=== PATIENT | female | born 1965 | race Caucasian/White ===

== ENCOUNTER 2016-08-24 20:42 | Emergency (ER) | payer BC, OTHER ==
[2016-08-24 21:54] LABS: BASO % 0.7 % (0.0-1.0); EOS # 0.1 K/mm3 (0.0-0.50); EOS % 1.4 % (0.0-3.0); LARGE UNSTAINED CELL # 0.1 K/mm3 (0.0-0.4); LARGE UNSTAINED CELL % 1.1 % (0.0-4.0); LYMPH # 0.5 K/mm3 (1.5-4.5); LYMPH % 8.4 % (24.0-44.0); MEAN CORPUSCULAR HEMOGLOBIN 28.6 pg (27.0-33.0); MEAN CORPUSCULAR VOLUME 84.1 fl (80.0-96.0); MONO # 0.2 K/mm3 (0.0-0.8); MONO % 4.7 % (0.0-5.0); NEUTROPHILS # 4.2 K/mm3 (1.8-7.7); NEUTROPHILS % 83.7 % (36.0-66.0); PLATELET COUNT, AUTOMATED 207 k/mm3 (150-450); RED CELL DISTRIBUTION WIDTH 13.4 % (11.5-14.5)
[2016-08-24 22:18] LABS: CONTROL LINE MONO INT CTR LINE PRESENT
[2016-08-24 22:20] LABS: ANION GAP 10 MEQ/L (8-16); BLOOD UREA NITROGEN 17 MG/DL (7-18); CALCIUM LEVEL 8.1 MG/DL (8.5-10.1); CARBON DIOXIDE LEVEL 25 MEQ/L (21-32); CHLORIDE LEVEL 102 MEQ/L (98-107); CREATININE FOR GFR 0.98 MG/DL (0.55-1.02); GLOMERULAR FILTRATION RATE > 60.0 (>51); GLUCOSE, FASTING 142 MG/DL (70-105); MAGNESIUM LEVEL 2.1 MG/DL (1.8-2.4); PHOSPHORUS LEVEL 3.5 MG/DL (2.5-4.9); POTASSIUM SERUM 3.5 MEQ/L (3.5-5.1); SODIUM LEVEL 137 MEQ/L (136-145)
[2016-08-24] MEDS ORDERED: OSELTAMIVIR PHOSPHATE 75 MG CAP (TAMIFLU) As Ordered ONE (23:51)
--- NOTE | 2016-08-25 | EDDOCDS ---
Physician Documentation [facility] Name: Anna Garcia Age: 51 yrs Sex: Female : 1965 Arrival Date: 08/24/2016 Time: 20:42 Bed Family 1 Private MD: Disposition: 08/24 23:25 I have independently interviewed and examined the patient, and I agree with the mm11 investigation, diagnosis and treatment plan as documented by the Resident. Disposition: 08/24/16 23:34 Discharged to Home/Self Care. Impression: Influenza due to identified novel influenza A virus. - Condition is Stable. - Discharge Instructions: Influenza, Adult, Influenza, Adult, [id number]. - Prescriptions for Tamiflu 75 mg Oral Capsule - take 1 capsule by ORAL route every 12 hours for 5 days; 10 capsule. - Medication Reconciliation, Local Pharmacy Hours form. - Follow up: Private Physician; When: Call to arrange an appointment; Reason: Recheck today's complaints, Continuance of care. - Problem is new. - Symptoms are unchanged. Historical: - Allergies: No known drug Allergies; - Home Meds: 1. Plavix 75 mg Oral tab 1 tab once daily (Last dose: 08/24/2016) 2. aspirin 325 mg Oral tab 1 tab once daily (Last dose: 08/24/2016) 3. Requip 1 mg Oral tab twice a day (Last dose: 08/24/2016) 4. Symbicort 160-4.5 mcg/actuation inhalation HFAA 2 puffs 2 times per day (Last dose: 08/24/2016) - PMHx: Bronchitis; CAD; detached retina Left eye; - PSHx: Stents, Coronary; heart cath; Knee surgery- Left; Tonsillectomy; detached retina left eye; - Social history: Smoking status: Patient uses tobacco products, heavy tobacco smoker. No barriers to communication noted, The patient speaks fluent Emirati, Speaks appropriately for age. - Family history: Not pertinent. - : The pt / caregiver states he / she is on anticoagulants: Plavix. Home medication list is obtained from the patient. - Exposure Risk Screening:: None identified. 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 4 in. (162.56 cm); Pain 0/10; 22:04 BP 107 / 62 RA Supine (auto/reg); js15 22:05 Pulse 64 MON; Pulse Ox 93% ; js15 22:19 BP 117 / 70 RA Sitting (auto/reg); js15 22:20 Pulse 64 MON; Pulse Ox 93% ; js15 22:24 BP 107 / 63 RA Standing (auto/reg); js15 22:25 Pulse 70 MON; Pulse Ox 93% ; js15 23:38 BP 121 / 70; Pulse 64; Resp 18; Temp 98.2(TE); Pulse Ox 94% on R/A; Pain 0/10; rosaline 20:55 Body Mass Index 29.70 (78.47 kg, 162.56 cm) js15 MDM: 21:18 Strep Screen, Nursing ordered. gk1 21:19 ECG WITH READING ER PHYS+CARDIAG ordered. EDMS 21:20 Orthostatic VS ordered. gk1 21:20 Monoscreen Ordered. EDMS 21:20 -Influenza A&B Rapid Antigen - Nose Ordered. EDMS 21:21 Personal Care Aide ordered. gk1 21:22 Chest, 2 View (pa\E\lat) Ordered. EDMS 21:30 LR Solution 1000 ml IV at bolus once ordered. gk1 21:30 IV Saline Lock ordered. gk1 21:39 CBC with Diff Ordered. EDMS 21:39 Basic Metabolic Profile Ordered. EDMS 21:39 Magnesium Level Ordered. EDMS 21:39 Phosphorous Level Ordered. EDMS 21:56 GATS (NEGATIVE STREP SCREEN) Ordered. EDMS 22:15 [facility] Payment Agreement was scanned into [employer] and attached to record. gb 22:16 Financial registration complete. gb 23:07 -Influenza A&B Rapid Antigen - Nose Reviewed. gk1 23:07 CBC with Diff Reviewed. gk1 23:07 Basic Metabolic Profile Reviewed. gk1 23:07 Monoscreen Reviewed. gk1 23:07 Magnesium Level Reviewed. gk1 23:07 Phosphorous Level Reviewed. gk1 23:33 Oseltamivir 75 mg PO once ordered. gk1 Administered Medications: 21:48 Drug: LR 1000 ml [lactated ringers intravenous solution] Route: IV; Rate: bolus; Site: js15 left hand; 23:57 Follow up: IV Status: Completed infusion; IV Intake: 1000ml js15 23:57 Drug: Oseltamivir 75 mg [oseltamivir 75 mg capsule (1 caps)] Route: PO; js15 Signatures: Dispatcher [employer] EDCristel Astorga, Reg Reg gb Jacobo Sandhu, DO mm11 Pia HerculesRN RN js15 Armin Myers, DO DO gk1 The chart was reviewed and I authenticate all verbal orders and agree with the evaluation and treatment provided.Attachments: :15 [facility] Payment Agreement gb MTDD
--- NOTE | 2016-08-25 | EDDOCDS ---
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 states that he thinks she passed out because he was talking to her and she wasn't answering but pt does not recall syncopal episode. Diaphoretic on EMS arrival; FSBS 1417. 20:45 Acuity: SAGRARIO Level 3 js15 20:50 Adult Sepsis Screening: The patient does not have new or worsening altered mentation. js15 Patient's respiratory rate is less than 22. Systolic blood pressure is greater than 100. Patient has a qSOFA score of 0- Negative Sepsis Screen. Suicide/Homicide risk assessment- the patient denies having any suicidal and/or homicidal ideations and does not present with any other emotional, behavioral or mental health complaints. 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 Transition of care: patient was not received from another setting of care. 20:50 Method Of Arrival: Ambulance js15 Triage Assessment: 20:55 General: Appears in no apparent distress, comfortable, Behavior is appropriate for age, js15 cooperative. Pain: Denies pain. Pt Declines HIV testing. The patient is triaged at the bedside. See Assessment in Nurses Notes section of ED record. Neurological: Level of Consciousness is awake, alert, obeys commands, Oriented to person, place, time. Cardiovascular: Capillary refill < 3 seconds Heart tones S1 S2 present Rhythm is sinus rhythm. Respiratory: Airway is patent Respiratory effort is even, unlabored, Respiratory pattern is regular, symmetrical, Breath sounds are coarse Breath sounds with wheezes expiratory bilaterally. Reports cough that is non-productive. GI: Abdomen is non- distended Bowel sounds present X 4 quads. Abd is soft and non tender X 4 quads. Derm: Skin is pink, warm & dry. 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 Plavix 75 mg Oral tab 1 tab once daily (Last dose: 08/24/2016) 2. aspirin 325 mg Oral tab 1 tab once daily (Last dose: 08/24/2016) 3. Requip 1 mg Oral tab twice a day (Last dose: 08/24/2016) 4. Symbicort 160-4.5 mcg/actuation inhalation HFAA 2 puffs 2 times per day (Last dose: 08/24/2016) - PMHx: Bronchitis; CAD; detached retina Left eye; - PSHx: Stents, Coronary; heart cath; Knee surgery- Left; Tonsillectomy; detached retina left eye; - Social history: Smoking status: Patient uses tobacco products, heavy tobacco smoker. No barriers to communication noted, The patient speaks fluent Bengali, Speaks appropriately for age. - Family history: Not pertinent. - : The pt / caregiver states he / she is on anticoagulants: Plavix. Home medication list is obtained from the patient. - Exposure Risk Screening:: None identified. Screenin:02 Screening information is obtained from the patient. Fall risk: No risks identified. js15 Assistance ADL's: requires no assistance with activities of daily living. Abuse/DV Screen: The patient / caregiver reports he/she is: not in a situation that causes fear, pain or injury. Nutritional screening: No deficits noted. Advance Directives: There is no active DNR order. home support is adequate. Assessment: 21:02 General: see triage note. js15 22:00 Reassessment: Patient appears in no apparent distress at this time. Pt resting on js15 stretcher with at bedside; respirations even and unlabored; skin pink, warm, dry. 23:00 Reassessment: Patient appears in no apparent distress at this time. Patient denies pain js15 at this time. Pt resting on stretcher, respirations even and unlabored; skin pink, warm, dry. 23:58 General: Appears in no apparent distress, comfortable, Behavior is appropriate for age, js15 cooperative. Pain: Denies pain. Neurological: Level of Consciousness is awake, alert, obeys commands, Oriented to person, place, time. Cardiovascular: Rhythm is regular. Respiratory: Airway is patent Respiratory effort is even, unlabored, Respiratory pattern is regular, symmetrical. Derm: Skin is pink, warm & dry. Vital Signs: 20:55 BP 119 / 60; Pulse 73; Resp 20; Temp 99.4(O); Pulse Ox 93% on R/A; Weight 78.47 kg; js15 Height 5 ft. 4 in. (162.56 cm); Pain 0/10; 22:04 BP 107 / 62 RA Supine (auto/reg); js15 22:05 Pulse 64 MON; Pulse Ox 93% ; js15 22:19 BP 117 / 70 RA Sitting (auto/reg); js15 22:20 Pulse 64 MON; Pulse Ox 93% ; js15 22:24 BP 107 / 63 RA Standing (auto/reg); js15 22:25 Pulse 70 MON; Pulse Ox 93% ; js15 23:38 BP 121 / 70; Pulse 64; Resp 18; Temp 98.2(TE); Pulse Ox 94% on R/A; Pain 0/10; rosaline 20:55 Body Mass Index 29.70 (78.47 kg, 162.56 cm) js15 Vitals: 20:55 Log In Time N/A - ambulance arrival. js15 21:55 Strep Screen is obtained and tested: Negative, [facility] and [facility]. ED Course: 20:44 Patient visited by Leidy Frankel, Filter Tank Operator. ml3 20:44 Princess iKng,RN is Primary Nurse. ml3 20:44 Patient moved to Waiting ml3 20:44 Patient moved to 13 ml3 20:49 [facility]. gk1 20:49 Jacobo Sandhu DO is Attending Physician. gk1 20:49 Triage Initiated js15 21:02 Maintain field IV. Dressing intact. Site clean & dry. Gauge & site: 18 G L hand. js15 21:26 EKG done. (by ED staff). Reviewed by Armin Myers DO. rosaline 21:35 Patient visited by Jacobo Sandhu DO. mm11 21:54 -Influenza A&B Rapid Antigen - Nose Sent. js15 22:00 The patient / caregiver is instructed regarding the plan of care and ED course. js15 22:15 [facility] [place] [facility] Payment Agreement was scanned into [employer] and attached to record. gb 22:42 Patient visited by Armin Myers DO. gk1 23:38 Patient visited by Tonia Teran PCA. rosaline 23:58 Discontinued IV lock intact, bleeding controlled, pressure dressing applied, No js15 redness/swelling at site. No procedures done that require assistance. 23:59 Patient moved to Family 1 bakari Administered Medications: 21:48 Drug: LR 1000 ml [lactated ringers intravenous solution] Route: IV; Rate: bolus; Site: js15 left hand; 23:57 Follow up: IV Status: Completed infusion; IV Intake: 1000ml js15 23:57 Drug: Oseltamivir 75 mg [oseltamivir 75 mg capsule (1 caps)] Route: PO; js15 Intake: 23:57 IV: 1000.00ml; Total: 1000.00ml. js15 Order Results: Lab Order: -Influenza A&B Rapid Antigen - Nose; SPEC'M 08/24/16 21:45 Test: INFLUENZA A RAPID SCR by ICA; Value: INFLUENZA A RESULTS POSITIVE; Abnormal: Abnormal; Status: F Test: INFLUENZA A RAPID SCR by ICA; Value: Comments:; Status: F Test: INFLUENZA B RAPID SCR by ICA; Value: INFLUENZA B RESULTS NEGATIVE; Status: F Test Note: ; The Influenza test is a direct rapid immunoassay for the qualitative detection of Influenza viral antigen. Cell culture (Viral Culture) testing should be considered to confirm NEGATIVE results and to assist in detecting other viruses that can provide similar clinical symptoms. Please contact the lab within 24 hours ([phone]) if confirmatory testing is desired. Lab Order: Monoscreen; SPEC'M 08/24/16 21:45 Test: MONO SCRN; Value: NEGATIVE; Range: NEGATIVE; Status: F Lab Order: CBC with Diff; SPEC'M 08/24/16 21:45 Test: WHITE BLOOD COUNT; Value: 5.0; Range: 4.0-10.0; Units: K/mm3; Status: F Test: RED BLOOD COUNT; Value: 4.63; Range: 4.00-5.40; Units: M/mm3; Status: F Test: HEMOGLOBIN; Value: 13.2; Range: 12.0-16.0; Units: g/dl; Status: F Test: HEMATOCRIT; Value: 38.9; Range: 36.0-47.0; Units: %; Status: F Test: MEAN CORPUSCULAR VOLUME; Value: 84.1; Range: 80.0-96.0; Units: fl; Status: F Test: MEAN CORPUSCULAR HEMOGLOBIN; Value: 28.6; Range: 27.0-33.0; Units: pg; Status: F Test: MEAN CORPUSCULAR HGB CONC; Value: 34.0; Range: 32.0-36.5; Units: g/dl; Status: F Test: RED CELL DISTRIBUTION WIDTH; Value: 13.4; Range: 11.5-14.5; Units: %; Status: F Test: PLATELET COUNT, AUTOMATED; Value: 207; Range: 150-450; Units: k/mm3; Status: F Test: NEUTROPHILS %; Value: 83.7; Range: 36.0-66.0; Abnormal: Above high normal; Units: %; Status: F Test: LYMPH %; Value: 8.4; Range: 24.0-44.0; Abnormal: Below low normal; Units: %; Status: F Test: MONO %; Value: 4.7; Range: 0.0-5.0; Units: %; Status: F Test: EOS %; Value: 1.4; Range: 0.0-3.0; Units: %; Status: F Test: BASO %; Value: 0.7; Range: 0.0-1.0; Units: %; Status: F Test: LARGE UNSTAINED CELL %; Value: 1.1; Range: 0.0-4.0; Units: %; Status: F Test: NEUTROPHILS #; Value: 4.2; Range: 1.8-7.7; Units: K/mm3; Status: F Test: LYMPH #; Value: 0.5; Range: 1.5-4.5; Abnormal: Below low normal; Units: K/mm3; Status: F Test: MONO #; Value: 0.2; Range: 0.0-0.8; Units: K/mm3; Status: F Test: EOS #; Value: 0.1; Range: 0.0-0.50; Units: K/mm3; Status: F Test: BASO #; Value: 0.0; Range: 0.0-0.2; Units: K/mm3; Status: F Test: LARGE UNSTAINED CELL #; Value: 0.1; Range: 0.0-0.4; Units: K/mm3; Status: F Lab Order: Basic Metabolic Profile; SPEC' 08/24/16 21:45 Test: GLUCOSE, FASTING; Value: 142; Range: 70-105; Abnormal: Above high normal; Units: MG/DL; Status: F Test: BLOOD UREA NITROGEN; Value: 17; Range: 7-18; Units: MG/DL; Status: F Test: CREATININE FOR GFR; Value: 0.98; Range: 0.55-1.02; Units: MG/DL; Status: F Test: GLOMERULAR FILTRATION RATE; Value: > 60.0; Range: >51; Status: F Test: SODIUM LEVEL; Value: 137; Range: 136-145; Units: MEQ/L; Status: F Test: POTASSIUM SERUM; Value: 3.5; Range: 3.5-5.1; Units: MEQ/L; Status: F Test: CHLORIDE LEVEL; Value: 102; Range: 98-107; Units: MEQ/L; Status: F Test: CARBON DIOXIDE LEVEL; Value: 25; Range: 21-32; Units: MEQ/L; Status: F Test: ANION GAP; Value: 10; Range: 8-16; Units: MEQ/L; Status: F Test: CALCIUM LEVEL; Value: 8.1; Range: 8.5-10.1; Abnormal: Below low normal; Units: MG/DL; Status: F Test Note: ; Units are mL/min/1.73 m2 Chronic Kidney Disease Staging per NKF: Stage I & II GFR >=60 Normal to Mildly Decreased Stage III GFR 30-59 Moderately Decreased Stage IV GFR 15-29 Severely Decreased Stage V GFR <15 Very Little GFR Left ESRD GFR <15 on DATA COLLECTION SPECIALIST Lab Order: Magnesium Level; [facility]' 08/24/16 21:45 Test: MAGNESIUM LEVEL; Value: 2.1; Range: 1.8-2.4; Units: MG/DL; Status: F Lab Order: Phosphorous Level; SPEC' 08/24/16 21:45 Test: PHOSPHORUS LEVEL; Value: 3.5; Range: 2.5-4.9; Units: MG/DL; Status: F Outcome: 23:34 Discharge ordered by Provider. gk1 23:58 Discharge Assessment: Patient awake, alert and oriented x 3. No cognitive and/or js15 functional deficits noted. Patient verbalized understanding of disposition instructions. patient administered narcotics - no. The following High Risk Discharge criteria are identified: None. Discharged to home ambulatory, with significant other. Condition: stable. Discharge instructions given to patient, Instructed on discharge instructions, follow up and referral plans. medication usage, Demonstrated understanding of instructions, medications, Pt was receptive of discharge instructions/ teaching. Prescriptions given X 1. No special radiology studies were completed. Property sent home with patient. 23:59 Patient left the ED. js15 Signatures: Sophy Cerrato, RN RN Cristel Josue, Reg Reg gb Leidy Frankel, Filter Tank Operator Unit ml3 Jacobo Sandhu, DO DO mm11 Tonia Teran, TERMITE EXTERMINATOR TERMITE EXTERMINATOR Pia Aceves RN RN js15 Armin Myers, DO DO gk1 WILL
--- NOTE | 2016-08-25 08:29 | ECGEPIP ---
Stationary ECG Study 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
--- NOTE | 2016-08-25 08:44 | REP ---
Clinical: Acute cough . Comparison: 07/19/2009 . Technique: PA and lateral. Findings: The mediastinum and cardiac silhouette are normal. The lung gaytan are clear and without acute consolidation, effusion, or pneumothorax. The skeletal structures are intact and normal. Impression: 1. No acute cardiopulmonary process. Signed by Yung Kim MD 08/25/2016 08:35 A
--- NOTE | 2016-08-27 01:00 | EDDOCDS ---
Nurse's Notes [facility] Name: Dinh Garcia Age: 51 yrs Sex: Female : 1965 Arrival Date: 08/24/2016 Time: 20:42 Bed Family 1 Private MD: Diagnosis: Influenza due to identified novel influenza A virus Presentation: 08/24 20:45 Presenting complaint: EMS states: Flu like symptoms for 3 days [employer]; Fever that has been js15 controlled with tylenol. states that he thinks she passed out because he was talking to her and she wasn't answering but pt does not recall syncopal episode. Diaphoretic on EMS arrival; FSBS 1417. 20:45 Acuity: [place] Level 3 js15 20:50 Adult Sepsis Screening: The patient does not have new or worsening altered mentation. js15 Patient's respiratory rate is less than 22. Systolic blood pressure is greater than 100. Patient has a qSOFA score of 0- Negative Sepsis Screen. Suicide/Homicide risk assessment- the patient denies having any suicidal and/or homicidal ideations and does not present with any other emotional, behavioral or mental health complaints. 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 Transition of care: patient was not received from another setting of care. 20:50 Method Of Arrival: Ambulance js15 Triage Assessment: 20:55 General: Appears in no apparent distress, comfortable, Behavior is appropriate for age, js15 cooperative. Pain: Denies pain. Pt Declines HIV testing. The patient is triaged at the bedside. See Assessment in Nurses Notes section of ED record. Neurological: Level of Consciousness is awake, alert, obeys commands, Oriented to person, place, time. Cardiovascular: Capillary refill < 3 seconds Heart tones S1 S2 present Rhythm is sinus rhythm. Respiratory: Airway is patent Respiratory effort is even, unlabored, Respiratory pattern is regular, symmetrical, Breath sounds are coarse Breath sounds with wheezes expiratory bilaterally. Reports cough that is non-productive. GI: Abdomen is non- distended Bowel sounds present X 4 quads. Abd is soft and non tender X 4 quads. Derm: Skin is pink, warm & dry. 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 Plavix 75 mg Oral tab 1 tab once daily (Last dose: 08/24/2016) 2. aspirin 325 mg Oral tab 1 tab once daily (Last dose: 08/24/2016) 3. Requip 1 mg Oral tab twice a day (Last dose: 08/24/2016) 4. Symbicort 160-4.5 mcg/actuation inhalation HFAA 2 puffs 2 times per day (Last dose: 08/24/2016) - PMHx: Bronchitis; CAD; detached retina Left eye; - PSHx: Stents, Coronary; heart cath; Knee surgery- Left; Tonsillectomy; detached retina left eye; - Social history: Smoking status: Patient uses tobacco products, heavy tobacco smoker. No barriers to communication noted, The patient speaks fluent Amharic, Speaks appropriately for age. - Family history: Not pertinent. - : The pt / caregiver states he / she is on anticoagulants: Plavix. Home medication list is obtained from the patient. - Exposure Risk Screening:: None identified. Screenin:02 Screening information is obtained from the patient. Fall risk: No risks identified. js15 Assistance ADL's: requires no assistance with activities of daily living. Abuse/DV Screen: The patient / caregiver reports he/she is: not in a situation that causes fear, pain or injury. Nutritional screening: No deficits noted. Advance Directives: There is no active DNR order. home support is adequate. Assessment: 21:02 General: see triage note. js15 22:00 Reassessment: Patient appears in no apparent distress at this time. Pt resting on js15 stretcher with at bedside; respirations even and unlabored; skin pink, warm, dry. 23:00 Reassessment: Patient appears in no apparent distress at this time. Patient denies pain js15 at this time. Pt resting on stretcher, respirations even and unlabored; skin pink, warm, dry. 23:58 General: Appears in no apparent distress, comfortable, Behavior is appropriate for age, js15 cooperative. Pain: Denies pain. Neurological: Level of Consciousness is awake, alert, obeys commands, Oriented to person, place, time. Cardiovascular: Rhythm is regular. Respiratory: Airway is patent Respiratory effort is even, unlabored, Respiratory pattern is regular, symmetrical. Derm: Skin is pink, warm & dry. Vital Signs: 20:55 BP 119 / 60; Pulse 73; Resp 20; Temp 99.4(O); Pulse Ox 93% on R/A; Weight 78.47 kg; js15 Height 5 ft. 4 in. (162.56 cm); Pain 0/10; 22:04 BP 107 / 62 RA Supine (auto/reg); js15 22:05 Pulse 64 MON; Pulse Ox 93% ; js15 22:19 BP 117 / 70 RA Sitting (auto/reg); js15 22:20 Pulse 64 MON; Pulse Ox 93% ; js15 22:24 BP 107 / 63 RA Standing (auto/reg); js15 22:25 Pulse 70 MON; Pulse Ox 93% ; js15 23:38 BP 121 / 70; Pulse 64; Resp 18; Temp 98.2(TE); Pulse Ox 94% on R/A; Pain 0/10; rosaline 20:55 Body Mass Index 29.70 (78.47 kg, 162.56 cm) js15 Vitals: 20:55 Log In Time N/A - ambulance arrival. js15 21:55 Strep Screen is obtained and tested: Negative, [facility]G [facility] and sent. ED Course: 20:44 Patient visited by Leidy Frankel, House Wrecker. ml3 20:44 Princess King,RN is Primary Nurse. ml3 20:44 Patient moved to Waiting ml3 20:44 Patient moved to 13 ml3 20:49 [facility]. gk1 20:49 Jacobo Sandhu DO is Attending Physician. gk1 20:49 Triage Initiated js15 21:02 Maintain field IV. Dressing intact. Site clean & dry. Gauge & site: 18 G L hand. js15 21:26 EKG done. (by ED staff). Reviewed by Armin Myers DO. rosaline 21:35 Patient visited by Jacobo Sandhu DO. mm11 21:54 -Influenza A&B Rapid Antigen - Nose Sent. js15 22:00 The patient / caregiver is instructed regarding the plan of care and ED course. js15 22:15 [facility] Payment Agreement was scanned into [employer] and attached to record. gb 22:42 Patient visited by Armin Myers DO. gk1 23:38 Patient visited by Tonia Teran PCA. rosaline 23:58 Discontinued IV lock intact, bleeding controlled, pressure dressing applied, No js15 redness/swelling at site. No procedures done that require assistance. 23:59 Patient moved to Family 1 jul 08 08:38 EKG-ADULT Returned. EDMS 09:13 Chest, 2 View (pa\E\lat) Returned. EDMS 09:35 T-Sheet-- Draft Copy was scanned into [employer] and attached to record. jp5 08/26 10:54 ECG/EKG was scanned into [employer] and attached to record. gb 10:56 PCR was scanned into [employer] and attached to record. gb Administered Medications: 08/24 21:48 Drug: LR 1000 ml [lactated ringers intravenous solution] Route: IV; Rate: bolus; Site: js15 left hand; 23:57 Follow up: IV Status: Completed infusion; IV Intake: 1000ml js15 23:57 Drug: Oseltamivir 75 mg [oseltamivir 75 mg capsule (1 caps)] Route: PO; js15 Intake: 23:57 IV: 1000.00ml; Total: 1000.00ml. js15 Order Results: Lab Order: -Influenza A&B Rapid Antigen - Nose; SPEC'M 08/24/16 21:45 Test: INFLUENZA A RAPID SCR by ICA; Value: INFLUENZA A RESULTS POSITIVE; Abnormal: Abnormal; Status: F Test: INFLUENZA A RAPID SCR by ICA; Value: Comments:; Status: F Test: INFLUENZA B RAPID SCR by ICA; Value: INFLUENZA B RESULTS NEGATIVE; Status: F Test Note: ; The Influenza test is a direct rapid immunoassay for the qualitative detection of Influenza viral antigen. Cell culture (Viral Culture) testing should be considered to confirm NEGATIVE results and to assist in detecting other viruses that can provide similar clinical symptoms. Please contact the lab within 24 hours ([phone]) if confirmatory testing is desired. Lab Order: Monoscreen; SPEC'M 08/24/16 21:45 Test: MONO SCRN; Value: NEGATIVE; Range: NEGATIVE; Status: F Lab Order: CBC with Diff; SPEC'M 08/24/16 21:45 Test: WHITE BLOOD COUNT; Value: 5.0; Range: 4.0-10.0; Units: K/mm3; Status: F Test: RED BLOOD COUNT; Value: 4.63; Range: 4.00-5.40; Units: M/mm3; Status: F Test: HEMOGLOBIN; Value: 13.2; Range: 12.0-16.0; Units: g/dl; Status: F Test: HEMATOCRIT; Value: 38.9; Range: 36.0-47.0; Units: %; Status: F Test: MEAN CORPUSCULAR VOLUME; Value: 84.1; Range: 80.0-96.0; Units: fl; Status: F Test: MEAN CORPUSCULAR HEMOGLOBIN; Value: 28.6; Range: 27.0-33.0; Units: pg; Status: F Test: MEAN CORPUSCULAR HGB CONC; Value: 34.0; Range: 32.0-36.5; Units: g/dl; Status: F Test: RED CELL DISTRIBUTION WIDTH; Value: 13.4; Range: 11.5-14.5; Units: %; Status: F Test: PLATELET COUNT, AUTOMATED; Value: 207; Range: 150-450; Units: k/mm3; Status: F Test: NEUTROPHILS %; Value: 83.7; Range: 36.0-66.0; Abnormal: Above high normal; Units: %; Status: F Test: LYMPH %; Value: 8.4; Range: 24.0-44.0; Abnormal: Below low normal; Units: %; Status: F Test: MONO %; Value: 4.7; Range: 0.0-5.0; Units: %; Status: F Test: EOS %; Value: 1.4; Range: 0.0-3.0; Units: %; Status: F Test: BASO %; Value: 0.7; Range: 0.0-1.0; Units: %; Status: F Test: LARGE UNSTAINED CELL %; Value: 1.1; Range: 0.0-4.0; Units: %; Status: F Test: NEUTROPHILS #; Value: 4.2; Range: 1.8-7.7; Units: K/mm3; Status: F Test: LYMPH #; Value: 0.5; Range: 1.5-4.5; Abnormal: Below low normal; Units: K/mm3; Status: F Test: MONO #; Value: 0.2; Range: 0.0-0.8; Units: K/mm3; Status: F Test: EOS #; Value: 0.1; Range: 0.0-0.50; Units: K/mm3; Status: F Test: BASO #; Value: 0.0; Range: 0.0-0.2; Units: K/mm3; Status: F Test: LARGE UNSTAINED CELL #; Value: 0.1; Range: 0.0-0.4; Units: K/mm3; Status: F Lab Order: Basic Metabolic Profile; [facility]' 08/24/16 21:45 Test: GLUCOSE, FASTING; Value: 142; Range: 70-105; Abnormal: Above high normal; Units: MG/DL; Status: F Test: BLOOD UREA NITROGEN; Value: 17; Range: 7-18; Units: MG/DL; Status: F Test: CREATININE FOR GFR; Value: 0.98; Range: 0.55-1.02; Units: MG/DL; Status: F Test: GLOMERULAR FILTRATION RATE; Value: > 60.0; Range: >51; Status: F Test: SODIUM LEVEL; Value: 137; Range: 136-145; Units: MEQ/L; Status: F Test: POTASSIUM SERUM; Value: 3.5; Range: 3.5-5.1; Units: MEQ/L; Status: F Test: CHLORIDE LEVEL; Value: 102; Range: 98-107; Units: MEQ/L; Status: F Test: CARBON DIOXIDE LEVEL; Value: 25; Range: 21-32; Units: MEQ/L; Status: F Test: ANION GAP; Value: 10; Range: 8-16; Units: MEQ/L; Status: F Test: CALCIUM LEVEL; Value: 8.1; Range: 8.5-10.1; Abnormal: Below low normal; Units: MG/DL; Status: F Test Note: ; Units are mL/min/1.73 m2 Chronic Kidney Disease Staging per NKF: Stage I & II GFR >=60 Normal to Mildly Decreased Stage III GFR 30-59 Moderately Decreased Stage IV GFR 15-29 Severely Decreased Stage V GFR <15 Very Little GFR Left ESRD GFR <15 on [facility] Lab Order: Magnesium Level; SPEC' 08/24/16 21:45 Test: MAGNESIUM LEVEL; Value: 2.1; Range: 1.8-2.4; Units: MG/DL; Status: F Lab Order: Phosphorous Level; SPEC'M 08/24/16 21:45 Test: PHOSPHORUS LEVEL; Value: 3.5; Range: 2.5-4.9; Units: MG/DL; Status: F Lab Order: GATS (NEGATIVE STREP SCREEN); SPEC'M 08/24/16 21:52 Test: GATS CULTURE (NEG STREP SCR); Value: GATS RESULT NEGATIVE FOR STREP PYOGENES (GROUP A); Status: F Test: GATS CULTURE (NEG STREP SCR); Value: <EXTERNAL COMMENT eCWMed> FULL REPORT IN LAB NOTES (eCW and Medent).; Status: F Radiology Order: EKG-ADULT Test: EKG-ADULT REASON FOR EXAMINATION: Syncope; Stationary ECG Study; [facility] - ED; ; Test Date: 2016-08-24; Pat Name: DINH GARCIA Department:; Room: -; 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 The lung gaytan are clear and; without acute consolidation, effusion, or pneumothorax. The skeletal structures; are intact and normal.; ; Impression:; 1. No acute cardiopulmonary process.; ; ; Signed by; Yugn Kim MD 08/25/2016 08:35 A; Outcome: 23:34 Discharge ordered by Provider. gk1 23:58 Discharge Assessment: Patient awake, alert and oriented x 3. No cognitive and/or js15 functional deficits noted. Patient verbalized understanding of disposition instructions. patient administered narcotics - no. The following High Risk Discharge criteria are identified: None. Discharged to home ambulatory, with significant other. Condition: stable. Discharge instructions given to patient, Instructed on discharge instructions, follow up and referral plans. medication usage, Demonstrated understanding of instructions, medications, Pt was receptive of discharge instructions/ teaching. Prescriptions given X 1. No special radiology studies were completed. Property sent home with patient. 23:59 Patient left the ED. js15 Signatures: Dispatcher [employer] EDMS Sophy Cerrato, RN RN Cristel Josue, Reg Reg gb Leidy Frankel, House Wrecker Unit ml3 Jacobo Sandhu, DO DO mm11 Tonia Teran, STATE EPIDEMIOLOGIST STATE EPIDEMIOLOGIST Pia Aceves,RN RN js15 Oli Noguera jp5 Armin Myers, DO DO gk1 Chart Complete WILL
--- NOTE | 2016-08-27 01:00 | EDDOCDS ---
Physician Documentation [facility] Name: Anna Garcia Age: 51 yrs Sex: Female : 1965 Arrival Date: 08/24/2016 Time: 20:42 Bed Family 1 Private MD: Disposition: 08/24 23:25 I have independently interviewed and examined the patient, and I agree with the mm11 investigation, diagnosis and treatment plan as documented by the Resident. Disposition: 08/24/16 23:34 Discharged to Home/Self Care. Impression: Influenza due to identified novel influenza A virus. - Condition is Stable. - Discharge Instructions: Influenza, Adult, Influenza, Adult, [id number]-[id number]. - Prescriptions for Tamiflu 75 mg Oral Capsule - take 1 capsule by ORAL route every 12 hours for 5 days; 10 capsule. - Medication Reconciliation, Local Pharmacy Hours form. - Follow up: Private Physician; When: Call to arrange an appointment; Reason: Recheck today's complaints, Continuance of care. - Problem is new. - Symptoms are unchanged. Historical: - Allergies: No known drug Allergies; - Home Meds: 1. Plavix 75 mg Oral tab 1 tab once daily (Last dose: 08/24/2016) 2. aspirin 325 mg Oral tab 1 tab once daily (Last dose: 08/24/2016) 3. Requip 1 mg Oral tab twice a day (Last dose: 08/24/2016) 4. Symbicort 160-4.5 mcg/actuation inhalation HFAA 2 puffs 2 times per day (Last dose: 08/24/2016) - PMHx: Bronchitis; CAD; detached retina Left eye; - PSHx: Stents, Coronary; heart cath; Knee surgery- Left; Tonsillectomy; detached retina left eye; - Social history: Smoking status: Patient uses tobacco products, heavy tobacco smoker. No barriers to communication noted, The patient speaks fluent Paraguayan, Speaks appropriately for age. - Family history: Not pertinent. - : The pt / caregiver states he / she is on anticoagulants: Plavix. Home medication list is obtained from the patient. - Exposure Risk Screening:: None identified. 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 4 in. (162.56 cm); Pain 0/10; 22:04 BP 107 / 62 RA Supine (auto/reg); js15 22:05 Pulse 64 MON; Pulse Ox 93% ; js15 22:19 BP 117 / 70 RA Sitting (auto/reg); js15 22:20 Pulse 64 MON; Pulse Ox 93% ; js15 22:24 BP 107 / 63 RA Standing (auto/reg); js15 22:25 Pulse 70 MON; Pulse Ox 93% ; js15 23:38 BP 121 / 70; Pulse 64; Resp 18; Temp 98.2(TE); Pulse Ox 94% on R/A; Pain 0/10; rosaline 20:55 Body Mass Index 29.70 (78.47 kg, 162.56 cm) js15 MDM: 21:18 Strep Screen, Nursing ordered. gk1 21:19 ECG WITH READING ER PHYS+CARDIAG ordered. EDMS 21:20 Orthostatic VS ordered. gk1 21:20 Monoscreen Ordered. EDMS 21:20 -Influenza A&B Rapid Antigen - Nose Ordered. EDMS 21:21 Estate Agent ordered. gk1 21:22 Chest, 2 View (pa\E\lat) Ordered. EDMS 21:30 LR Solution 1000 ml IV at bolus once ordered. gk1 21:30 IV Saline Lock ordered. gk1 21:39 CBC with Diff Ordered. EDMS 21:39 Basic Metabolic Profile Ordered. EDMS 21:39 Magnesium Level Ordered. EDMS 21:39 Phosphorous Level Ordered. EDMS 21:56 GATS (NEGATIVE STREP SCREEN) Ordered. EDMS 22:15 [facility] Payment Agreement was scanned into [employer] and attached to record. gb 22:16 Financial registration complete. gb 23:07 -Influenza A&B Rapid Antigen - Nose Reviewed. gk1 23:07 CBC with Diff Reviewed. gk1 23:07 Basic Metabolic Profile Reviewed. gk1 23:07 Monoscreen Reviewed. gk1 23:07 Magnesium Level Reviewed. gk1 23:07 Phosphorous Level Reviewed. gk1 23:33 Oseltamivir 75 mg PO once ordered. gk1 08/25 09:35 T-Sheet-- Draft Copy was scanned into [employer] and attached to record. jp5 02/20 10:54 ECG/EKG was scanned into [employer] and attached to record. gb 10:56 PCR was scanned into [employer] and attached to record. gb Administered Medications: 08/24 21:48 Drug: LR 1000 ml [lactated ringers intravenous solution] Route: IV; Rate: bolus; Site: js15 left hand; 23:57 Follow up: IV Status: Completed infusion; IV Intake: 1000ml js15 23:57 Drug: Oseltamivir 75 mg [oseltamivir 75 mg capsule (1 caps)] Route: PO; js15 Signatures: Dispatcher [employer] EDMS Cristel Nassar, Reg Reg gb Jacobo Sandhu DO DO mm11 Pia Hercules,RN RN js15 Oli Noguera jp5 Armin Myers DO DO gk1 The chart was reviewed and I authenticate all verbal orders and agree with the evaluation and treatment provided.Attachments: 22:15 [facility] Payment Agreement 08/25 09:35 T-Sheet-- Draft Copy jp5 08/26 10:54 ECG/EKG Chart Complete MTDD
--- NOTE | 2016-08-27 01:00 | EDDOCDS ---
Physician Documentation [facility] Name: Anna Garcia Age: 51 yrs Sex: Female : 1965 Arrival Date: 08/24/2016 Time: 20:42 Bed Family 1 Private MD: Disposition: 08/24 23:25 I have independently interviewed and examined the patient, and I agree with the mm11 investigation, diagnosis and treatment plan as documented by the Resident. Disposition: 08/24/16 23:34 Discharged to Home/Self Care. Impression: Influenza due to identified novel influenza A virus. - Condition is Stable. - Discharge Instructions: Influenza, Adult, Influenza, Adult, Btgy-cn-Hoyk. - Prescriptions for Tamiflu 75 mg Oral Capsule - take 1 capsule by ORAL route every 12 hours for 5 days; 10 capsule. - Medication Reconciliation, Local Pharmacy Hours form. - Follow up: Private Physician; When: Call to arrange an appointment; Reason: Recheck today's complaints, Continuance of care. - Problem is new. - Symptoms are unchanged. Historical: - Allergies: No known drug Allergies; - Home Meds: 1. Plavix 75 mg Oral tab 1 tab once daily (Last dose: 08/24/2016) 2. aspirin 325 mg Oral tab 1 tab once daily (Last dose: 08/24/2016) 3. Requip 1 mg Oral tab twice a day (Last dose: 08/24/2016) 4. Symbicort 160-4.5 mcg/actuation inhalation HFAA 2 puffs 2 times per day (Last dose: 08/24/2016) - PMHx: Bronchitis; CAD; detached retina Left eye; - PSHx: Stents, Coronary; heart cath; Knee surgery- Left; Tonsillectomy; detached retina left eye; - Social history: Smoking status: Patient uses tobacco products, heavy tobacco smoker. No barriers to communication noted, The patient speaks fluent Algerian, Speaks appropriately for age. - Family history: Not pertinent. - : The pt / caregiver states he / she is on anticoagulants: Plavix. Home medication list is obtained from the patient. - Exposure Risk Screening:: None identified. 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 4 in. (162.56 cm); Pain 0/10; 22:04 BP 107 / 62 RA Supine (auto/reg); js15 22:05 Pulse 64 MON; Pulse Ox 93% ; js15 22:19 BP 117 / 70 RA Sitting (auto/reg); js15 22:20 Pulse 64 MON; Pulse Ox 93% ; js15 22:24 BP 107 / 63 RA Standing (auto/reg); js15 22:25 Pulse 70 MON; Pulse Ox 93% ; js15 23:38 BP 121 / 70; Pulse 64; Resp 18; Temp 98.2(TE); Pulse Ox 94% on R/A; Pain 0/10; rosaline 20:55 Body Mass Index 29.70 (78.47 kg, 162.56 cm) js15 MDM: 21:18 Strep Screen, Nursing ordered. gk1 21:19 ECG WITH READING ER PHYS+CARDIAG ordered. EDMS 21:20 Orthostatic VS ordered. gk1 21:20 Monoscreen Ordered. EDMS 21:20 -Influenza A&B Rapid Antigen - Nose Ordered. EDMS 21:21 Motor Room Controller ordered. gk1 21:22 Chest, 2 View (pa\E\lat) Ordered. EDMS 21:30 LR Solution 1000 ml IV at bolus once ordered. gk1 21:30 IV Saline Lock ordered. gk1 21:39 CBC with Diff Ordered. EDMS 21:39 Basic Metabolic Profile Ordered. EDMS 21:39 Magnesium Level Ordered. EDMS 21:39 Phosphorous Level Ordered. EDMS 21:56 GATS (NEGATIVE STREP SCREEN) Ordered. EDMS 22:15 [facility] Payment Agreement was scanned into [employer] and attached to record. gb 22:16 Financial registration complete. gb 23:07 -Influenza A&B Rapid Antigen - Nose Reviewed. gk1 23:07 CBC with Diff Reviewed. gk1 23:07 Basic Metabolic Profile Reviewed. gk1 23:07 Monoscreen Reviewed. gk1 23:07 Magnesium Level Reviewed. gk1 23:07 Phosphorous Level Reviewed. gk1 23:33 Oseltamivir 75 mg PO once ordered. gk1 08/25 09:35 T-Sheet-- Draft Copy was scanned into [employer] and attached to record. jp5 02/20 10:54 ECG/EKG was scanned into [employer] and attached to record. gb 10:56 PCR was scanned into [employer] and attached to record. gb Administered Medications: 08/24 21:48 Drug: LR 1000 ml [lactated ringers intravenous solution] Route: IV; Rate: bolus; Site: js15 left hand; 23:57 Follow up: IV Status: Completed infusion; IV Intake: 1000ml js15 23:57 Drug: Oseltamivir 75 mg [oseltamivir 75 mg capsule (1 caps)] Route: PO; js15 Signatures: Dispatcher [employer] EDMS Cristel Nassar, Reg Reg gb Jacobo Sandhu DO DO mm11 Pia Hercules,RN RN js15 Oli Noguera jp5 Armin Myers DO DO gk1 The chart was reviewed and I authenticate all verbal orders and agree with the evaluation and treatment provided.Attachments: 22:15 [facility] Payment Agreement 08/25 09:35 T-Sheet-- Draft Copy jp5 08/26 10:54 ECG/EKG Chart Complete MTDD
== END 2016-08-24 23:59 | disposition home or self-care (01) ==
LOC: M ED 20:42
DX: J09.X2 Influenza due to identified novel influenza A virus with other respiratory manifestations (principal); I25.10 Atherosclerotic heart disease of native coronary artery without angina pectoris; Z95.5 Presence of coronary angioplasty implant and graft; Z87.09 Personal history of other diseases of the respiratory system; Z79.899 Other long term (current) drug therapy; Z79.01 Long term (current) use of anticoagulants; Z79.82 Long term (current) use of aspirin; F17.210 Nicotine dependence, cigarettes, uncomplicated

== ENCOUNTER → 2016-11-20 | Outpatient (CLI) | payer BC ==
--- NOTE | 2016-11-21 08:14 | REPMRS ---
Patient History The patient states she had a clinical breast exam in Patient is postmenopausal and is nulliparous. No known family history of cancer. Digital Woman Screen Mammo: November 20, 2016 - Exam #: [id number] Bilateral CC and MLO view(s) were taken. Technologist: Marya Robles, Technologist No prior studies available for comparison. FINDINGS: The breast tissue is heterogeneously dense. This may lower the sensitivity of mammography. There is no evidence of dominant mass, architectural distortion, or clustered microcalcification typical of malignancy. ASSESSMENT: BI-RADS/ACR category 2 mammogram. Benign finding(s). Recommendation Routine screening mammogram of both breasts in 1 year (for women over age 40). This mammogram was interpreted with the aid of an FDA-approved computer-aided dectection system. Electronically Signed By: Deepak Mendez MD 11/21/16 0814
== END ==
LOC: M WHC 15:23
PROVIDERS: ATTEND Nurse Practitioner Women's Health
DX: Z12.31 Encounter for screening mammogram for malignant neoplasm of breast (principal)

== ENCOUNTER → 2016-11-20 | Outpatient (REF) | payer OTHER | LOC: M SFHCWAGY 15:29 | PROVIDERS: ATTEND Nurse Practitioner Women's Health | DX: Z12.4 Encounter for screening for malignant neoplasm of cervix (principal) ==

== ENCOUNTER → 2017-01-17 | Outpatient (REF) | payer OTHER | LOC: M SMT 12:43 | PROVIDERS: ATTEND Nurse Practitioner Women's Health | DX: R31.29 Other microscopic hematuria (principal) ==

== ENCOUNTER → 2017-04-14 | Outpatient (REF) | payer OTHER ==
[2017-04-14 13:25] LABS: MEAN CORPUSCULAR HEMOGLOBIN 27.5 pg (27.0-33.0); MEAN CORPUSCULAR HGB CONC 32.2 g/dl (32.0-36.5); MEAN CORPUSCULAR VOLUME 85.2 fl (80.0-96.0); RED CELL DISTRIBUTION WIDTH 13.2 % (11.5-14.5); WHITE BLOOD COUNT 6.4 10^3/uL (4.0-10.0)
[2017-04-14 13:36] LABS: ALBUMIN 3.8 GM/DL (3.2-5.2); ALBUMIN/GLOBULIN RATIO 1.23 (1.00-1.93); ALKALINE PHOSPHATASE 88 U/L (45-117); ALT/SGPT 18 U/L (12-78); ANION GAP 6 MEQ/L (8-16); AST/SGOT 10 U/L (15-37); BILIRUBIN,TOTAL 0.3 MG/DL (0.2-1.0); BLOOD UREA NITROGEN 9 MG/DL (7-18); CALCIUM LEVEL 9.1 MG/DL (8.5-10.1); CARBON DIOXIDE LEVEL 30 MEQ/L (21-32); CHLORIDE LEVEL 102 MEQ/L (98-107); CHOLESTEROL LEVEL 399 MG/DL (<200); CREATININE FOR GFR 0.81 MG/DL (0.55-1.02); GLOMERULAR FILTRATION RATE > 60.0 (>51); GLUCOSE, FASTING 92 MG/DL (70-105); POTASSIUM SERUM 4.7 MEQ/L (3.5-5.1); SODIUM LEVEL 138 MEQ/L (136-145); TOTAL PROTEIN 6.9 GM/DL (6.4-8.2); TRIGLYCERIDES LEVEL 148 MG/DL (<150)
== END ==
LOC: M LABDRWAD 12:23
PROVIDERS: ATTEND Internal Medicine Cardiovascular Disease
DX: E78.5 Hyperlipidemia, unspecified (principal)

== ENCOUNTER → 2018-08-07 | Outpatient (CLI) | payer BC, OTHER ==
--- NOTE | 2018-08-07 08:39 | REP ---
Clinical: Lung screening. History of nicotine dependence. Comparison: 08/04/2018, 03/23/2015 Technique: Axial low-dose noncontrast images from the thoracic inlet to the upper abdomen using lung screening technique. Findings: The lung gaytan are well-aerated. Minimal biapical and small scattered scarring remains stable. No consolidation, significant nodule or mass lesion is appreciated. No pleural effusion/reaction or pneumothorax. Tracheobronchial tree is patent. Mediastinum demonstrates mild atherosclerotic changes of the coronary arteries without cardiomegaly. Impression: Lung-RADS category I. No nodule or suspicious abnormality. Electronically Signed by Yung Kim MD 08/07/2018 08:29 A
== END ==
LOC: M RAD 08:00
PROVIDERS: ATTEND Internal Medicine Pulmonary Disease
DX: Z87.891 Personal history of nicotine dependence (principal)

== ENCOUNTER → 2019-08-24 | Outpatient (CLI) | payer BC, OTHER ==
--- NOTE | 2019-08-24 08:38 | REP ---
Clinical: Lung screening. History smoking. Comparison: 08/07/2018 Technique: Axial low-dose noncontrast images from the thoracic inlet to the upper abdomen using lung screening technique. Findings: The lung gaytan are well-aerated. Chronic biapical scarring and minimal scattered interstitial changes remain stable. There is a new area of linear scarring at the left base. No consolidation, significant nodule or mass lesion is appreciated. No pleural effusion/reaction or pneumothorax. Tracheobronchial tree is patent. Mediastinum demonstrates mild atherosclerotic changes of the coronary arteries without cardiomegaly. Impression: Lung-RADS category II. No nodule or suspicious abnormality. Management recommendations include annual surveillance. Electronically Signed by Yung Kim MD 08/24/2019 08:29 A
== END ==
LOC: M RAD 08:08
PROVIDERS: ATTEND Internal Medicine Pulmonary Disease
DX: Z87.891 Personal history of nicotine dependence (principal)

== ENCOUNTER → 2020-04-18 | Outpatient (CLI) | payer BC, OTHER ==
--- NOTE | 2020-04-21 08:42 | REP ---
RIGHT FOOT SERIES: 04/18/20. CLINICAL: Contusion. TECHNIQUE: AP lateral bilateral oblique views of the left foot. FINDINGS: Advanced osteopenia and post traumatic arthritic changes are appreciated. Evidence for prior open reduction and fixation for ankle fracture is noted. No obvious acute fracture or dislocation identified. No subcutaneous emphysema or foreign body. IMPRESSION: Osteopenia and degenerative change. No obvious acute fracture or dislocation. MTDD
== END ==
LOC: M ADAMS 10:50
PROVIDERS: ATTEND Physician Assistant
DX: S90.32XA Contusion of left foot, initial encounter (principal); X58.XXXA Exposure to other specified factors, initial encounter; Y92.89 Other specified places as the place of occurrence of the external cause; M85.872 Other specified disorders of bone density and structure, left ankle and foot; M19.072 Primary osteoarthritis, left ankle and foot

== ENCOUNTER → 2020-08-25 | Outpatient (CLI) | payer BC, OTHER ==
--- NOTE | 2020-08-25 08:12 | REP ---
INDICATION: LUNG SCREENING COMPARISON: 08/24/2019, 08/04/2017 TECHNIQUE: Axial noncontrast images from the thoracic inlet to the upper abdomen using low-dose lung screening technique (LDCT). FINDINGS: Lung gaytan are well aerated and relatively clear. Moderate chronic biapical nodular scarring is again identified essentially unchanged. No acute consolidation, significant nodule or mass lesion. Tracheobronchial tree is patent. No effusion. No pneumothorax. IMPRESSION: Lung-RADS category 2 with stable nodular biapical scarring. Management recommendations include annual low-dose CT surveillance. <Electronically signed by Yung Kim > 08/25/20 [id number]
== END ==
LOC: M RAD 07:05
PROVIDERS: ATTEND Internal Medicine Pulmonary Disease
DX: Z12.2 Encounter for screening for malignant neoplasm of respiratory organs (principal); Z87.891 Personal history of nicotine dependence

== ENCOUNTER → 2021-02-16 | Outpatient (CLI) | payer BC, OTHER ==
--- NOTE | 2021-02-16 09:25 | REP ---
INDICATION: CHRONIC OBSTRUCTIVE PULMONARY DISEASE, UNSPECIFIED. COMPARISON: PA and lateral chest dated 08/24/2016. TECHNIQUE: Upright PA and lateral chest. FINDINGS: The lung gaytan are clear, however, appear hyperinflated, compatible with the clinical history. Cardiac size is normal. The deqaun, mediastinum and skeletal structures are unremarkable except for mild thoracic scoliosis, unchanged.. IMPRESSION: Hyperinflation. Mild scoliosis. Otherwise, essentially negative PA and lateral chest <Electronically signed by Angel Van > 02/16/21 0921
== END ==
LOC: M RAD 08:48
PROVIDERS: ATTEND Internal Medicine Pulmonary Disease
DX: J44.9 Chronic obstructive pulmonary disease, unspecified (principal); M41.9 Scoliosis, unspecified

== ENCOUNTER → 2021-06-07 | Outpatient (CLI) | payer BC, OTHER | LOC: M WUC 10:20 | PROVIDERS: ATTEND Physician Assistant | DX: M54.2 Cervicalgia (principal) ==

== ENCOUNTER → 2021-09-07 | Outpatient (CLI) | payer BC, OTHER | LOC: M RAD 07:05 | PROVIDERS: ATTEND Internal Medicine Pulmonary Disease | DX: Z87.891 Personal history of nicotine dependence (principal) ==

== ENCOUNTER → 2021-09-13 | Outpatient (CLI) | payer BC, OTHER ==
[2021-09-13 08:40] LABS: BASO # 0.1 10^3/uL (0.0-0.2); BASO % 0.8 % (0.0-1.0); EOS # 0.1 10^3/uL (0.0-0.5); EOS % 1.5 % (0.0-3.0); HEMATOCRIT 43.6 % (36.0-47.0); LYMPH # 1.6 10^3/uL (1.5-5.0); LYMPH % 24.8 % (24.0-44.0); MEAN CORPUSCULAR HEMOGLOBIN 27.1 pg (27.0-33.0); MEAN CORPUSCULAR HGB CONC 32.1 g/dl (32.0-36.5); MEAN CORPUSCULAR VOLUME 84.5 fl (80.0-96.0); MONO # 0.3 10^3/uL (0.0-0.8); MONO % 4.4 % (2.0-8.0); NEUTROPHILS # 4.5 10^3/uL (1.5-8.5); PLATELET COUNT, AUTOMATED 276 10^3/uL (150-450); RED BLOOD COUNT 5.16 10^6/uL (4.00-5.40); WHITE BLOOD COUNT 6.6 10^3/uL (4.0-10.0)
[2021-09-13 09:16] LABS: ALBUMIN 3.8 GM/DL (3.2-5.2); ALT/SGPT 20 U/L (12-78); BILIRUBIN,TOTAL 0.2 MG/DL (0.2-1.0); BLOOD UREA NITROGEN 19 MG/DL (7-18); CALCIUM LEVEL 8.9 MG/DL (8.5-10.1); CARBON DIOXIDE LEVEL 28 MEQ/L (21-32); CHLORIDE LEVEL 107 MEQ/L (98-107); CHOLESTEROL LEVEL 331 MG/DL (<200); CHOLESTEROL RISK RATIO 6.245 (<5); GLOMERULAR FILTRATION RATE > 60.0 (>51); GLUCOSE, FASTING 97 MG/DL (70-100); HDL CHOLESTEROL 53 MG/DL (>40); LDL CHOLESTEROL 260 MG/DL (<100); NON-HDL-C 278 MG/DL; POTASSIUM SERUM 4.6 MEQ/L (3.5-5.1); SODIUM LEVEL 139 MEQ/L (136-145); TRIGLYCERIDES LEVEL 92 MG/DL (<150)
== END ==
LOC: M LAB 07:57
PROVIDERS: ATTEND Internal Medicine Cardiovascular Disease
DX: E78.5 Hyperlipidemia, unspecified (principal)

== ENCOUNTER → 2021-09-13 | Outpatient (CLI) | payer BC, OTHER | LOC: M LABSMTC 10:08 | PROVIDERS: ATTEND Internal Medicine Cardiovascular Disease | DX: Z11.52 Encounter for screening for COVID-19 (principal) ==

== ENCOUNTER → 2021-12-09 | Outpatient (CLI) | payer BC, OTHER | LOC: M RAD 10:16 | PROVIDERS: ATTEND Physician Assistant | DX: Z01.818 Encounter for other preprocedural examination (principal); Z11.52 Encounter for screening for COVID-19 ==

== ENCOUNTER → 2021-12-18 | Outpatient (CLI) | payer BC, OTHER | LOC: M PLAIMG 07:35 | PROVIDERS: ATTEND Surgery Vascular Surgery | DX: M54.50 Low back pain, unspecified (principal) ==

== ENCOUNTER → 2022-05-14 | Outpatient (CLI) | payer BC, OTHER ==
[2022-05-14 17:22] LABS: BLOOD UREA NITROGEN 18 MG/DL (7-18); CALCIUM LEVEL 9.1 MG/DL (8.5-10.1); CARBON DIOXIDE LEVEL 29 MEQ/L (21-32); CHLORIDE LEVEL 104 MEQ/L (98-107); CREATININE FOR GFR 0.75 MG/DL (0.55-1.30); GLOMERULAR FILTRATION RATE > 60.0 (>51); GLUCOSE, FASTING 84 MG/DL (70-100); POTASSIUM SERUM 4.5 MEQ/L (3.5-5.1); SODIUM LEVEL 139 MEQ/L (136-145)
== END ==
LOC: M LAB 14:52
PROVIDERS: ATTEND Surgery Vascular Surgery
DX: I73.9 Peripheral vascular disease, unspecified (principal)

== ENCOUNTER → 2022-05-17 | Outpatient (CLI) | payer BC, OTHER ==
[~2022-05-17] MED LIST: ISOVUE-370 76% 100ML VIAL As Ordered ONE
== END ==
LOC: M RAD 08:39
PROVIDERS: ATTEND Surgery Vascular Surgery
DX: I73.9 Peripheral vascular disease, unspecified (principal)

== ENCOUNTER → 2022-10-01 | Outpatient (CLI) | payer BC, OTHER | LOC: M RAD 15:21 | PROVIDERS: ATTEND Internal Medicine Pulmonary Disease | DX: R06.02 Shortness of breath (principal) ==

== ENCOUNTER → 2022-10-24 | Outpatient (REF) | payer BC, OTHER ==
[2022-10-24 18:08] LABS: BASO % 0.5 % (0.0-1.0); EOS # 0.1 10^3/uL (0.0-0.5); EOS % 1.5 % (0.0-3.0); HEMATOCRIT 42.6 % (36.0-47.0); HEMOGLOBIN 13.6 g/dl (12.0-15.5); LYMPH # 1.7 10^3/uL (1.5-5.0); LYMPH % 30.7 % (24.0-44.0); MEAN CORPUSCULAR HEMOGLOBIN 27.5 pg (27.0-33.0); MEAN CORPUSCULAR HGB CONC 31.9 g/dl (32.0-36.5); MEAN CORPUSCULAR VOLUME 86.1 fl (80.0-96.0); MONO # 0.2 10^3/uL (0.0-0.8); MONO % 4.4 % (2.0-8.0); NEUTROPHILS # 3.4 10^3/uL (1.5-8.5); NEUTROPHILS % 62.7 % (36.0-66.0); PLATELET COUNT, AUTOMATED 332 10^3/uL (150-450); RED BLOOD COUNT 4.95 10^6/uL (4.00-5.40); WHITE BLOOD COUNT 5.5 10^3/uL (4.0-10.0)
[2022-10-29 02:07] LABS: D001-IgE D pteronyssinus <0.10 kU/L (Class 0); E001-IgE Cat Epith/Dander < 0.10 kU/L (Class 0); E005-IgE Dog Dander < 0.10 kU/L (Class 0); G002-IgE Bermuda Grass < 0.10 kU/L (Class 0); M001-IgE Penicillium chrysogen < 0.10 kU/L (Class 0); M002 IgE Cladosporium herbaru < 0.10 kU/L (Class 0); M003 IgE Aspergillus fumigatu < 0.10 kU/L (Class 0); M006-IgE Alternaria alternata < 0.10 kU/L (Class 0); T001-IgE Maple/Box Elder < 0.10 kU/L (Class 0); T003-IgE Common Silver Birch < 0.10 kU/L (Class 0); T006-IgE Cedar, Mountain < 0.10 kU/L (Class 0); T007-IgE Oak, White < 0.10 kU/L (Class 0); T008-IgE Elm, American < 0.10 kU/L (Class 0); T015-IgE Ash, White < 0.10 kU/L (Class 0); T070-IgE White Mulberry < 0.10 kU/L (Class 0); W001-IgE Ragweed, Short < 0.10 kU/L (Class 0); W018-IgE Sheep Sorrel < 0.10 kU/L (Class 0)
== END ==
LOC: M LAB REF 17:26
PROVIDERS: ATTEND Internal Medicine Pulmonary Disease
DX: R06.00 Dyspnea, unspecified (principal)

== ENCOUNTER → 2022-10-28 | Outpatient (CLI) | payer BC, OTHER | LOC: M RAD 14:54 | PROVIDERS: ATTEND Physician Assistant | DX: J44.1 Chronic obstructive pulmonary disease with (acute) exacerbation (principal) ==

== ENCOUNTER → 2022-11-11 | Outpatient (CLI) | payer BC, OTHER | LOC: M EKG 08:13 | PROVIDERS: ATTEND Internal Medicine Pulmonary Disease | DX: J44.9 Chronic obstructive pulmonary disease, unspecified (principal) ==

== ENCOUNTER → 2023-05-20 | Outpatient (CLI) | payer BC, OTHER | LOC: M RAD 08:22 | PROVIDERS: ATTEND Internal Medicine Cardiovascular Disease | DX: I65.29 Occlusion and stenosis of unspecified carotid artery (principal); I73.9 Peripheral vascular disease, unspecified ==

== ENCOUNTER → 2023-11-24 | Outpatient (CLI) | payer BC | LOC: M RAD 09:30 | PROVIDERS: ATTEND Internal Medicine Pulmonary Disease | DX: Z87.891 Personal history of nicotine dependence (principal) ==

== ENCOUNTER → 2024-06-24 | Outpatient (REF) | payer BC, OTHER | LOC: M LAB REF 09:44 | PROVIDERS: ATTEND Internal Medicine Pulmonary Disease | DX: J44.9 Chronic obstructive pulmonary disease, unspecified (principal) ==

== ENCOUNTER → 2024-11-24 | Outpatient (CLI) | payer BC | LOC: M RAD 06:35 | PROVIDERS: ATTEND Internal Medicine Pulmonary Disease | DX: R91.8 Other nonspecific abnormal finding of lung field (principal); J98.4 Other disorders of lung; F17.218 Nicotine dependence, cigarettes, with other nicotine-induced disorders ==